=== PATIENT | female | born 1990 | race Caucasian/White ===

== ENCOUNTER 2019-11-15 04:07 | Emergency (ER) | payer OTHER, SELFPAY ==
[2019-11-15 04:07] VITALS: BP 131/76; PULSE 73; RESP 18; TEMP 36.9; O2SAT 100
--- NOTE | 2019-11-15 04:13 | ED.ABDPAIN ---
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 She has had a sonogram for this that showed a blighted ovum. She says her pain is excruciating. She is 2 para 0 with 1 other miscarriage. She is having some vaginal bleeding but it is not severe. MD elicited complaint: abdominal pain Pertinent past history: other ( miscarriage) Onset (ago): day(s) (1) Pain Consistency: constant Location: pelvis Severity: severe Quality: cramping Radiation: none Migration to: no migration Exacerbating factors: nothing Relieving factors: nothing Associated symptoms: denies other symptoms Treatments prior to arrival: NSAIDs (Only took (1) 200mg Ibuprofen.) Related Data Patient : Yes Home Medications Medication Instructions Recorded Confirmed minocycline 100 mg PO DAILY 11/15/19 11/15/19 Allergies Allergy/AdvReac Type Severity Reaction Status Date / Time Penicillins Allergy Unknown Unverified 10/26/13 16:23 Review of Systems Constitutional: Constitutional: Reports no additional constitutional complaints, Denies chills and Denies fever(s) Eyes: Eyes: Reports no additional eye complaints ENT: Reports system reviewed and no additional complaints, except as documented Cardiovascular: Cardiovascular: Reports no additional cardiovascular complaints Respiratory: Respiratory: Reports no additional respiratory complaints Musculoskeletal: Musculoskeletal: Reports no additional musculoskeletal complaints Integumentary/Breasts: Skin/Breast: Reports system reviewed and no additional complaints, except as docu Neurologic: Reports system reviewed and no additional complaints, except as documented Psychiatric: Psychiatric: Reports no additional psychiatric complaints Hematologic/Lymphatic: Hematologic/Lymphatic: Reports no additional hematologic/lymphatic complaints Allergic/Immunologic: Allergic/Immunologic: Reports no additional allergic/immunologic complaints [facility] Surgical History Surgical History (Updated 11/15/19 @ 04:19 by Adonis Knapp MD) H/O dilation and curettage Social History Social History (Updated 11/15/19 @ 04:19 by Adonis Knapp MD) Smoking packs per day: 1 Smoking cigarettes per day: 20.0 Smoking status: Current every day smoker Tobacco type: cigarettes Alcohol intake: current Substance use: current Substance use type: marijuana Exam Const: General: healthy appearing and no acute distress Nutritional Appearance: well nourished Orientation/consciousness: patient oriented x3 Other: Female nurse in room during examination. HENMT: Head: normal to inspection Eyes: Conjunctivae: conjunctivae normal Pupils: Equal, round and reactive pupils present EOM: EOMs intact bilaterally Neck: Neck: normal visual inspection Resp: Effort & Inspection: normal respiratory effort Auscultation: clear to auscultation bilaterally Cardio: Rate: regular rate Rhythm: regular rhythm GI: GI Palp: Yes Soft to palpation, Yes Tenderness to palpation present (GI) (Moderate), Yes Guarding due to palpation present (GI), No Rigid due to palpation and No Rebound tenderness present Auscultation: normal bowel sounds Back/Spine/Pelvis: Back: no CVA tenderness Skin: General skin exam: normal color Rashes: no rashes Neuro: General: patient oriented x3, moves all extremities and no focal motor deficits Speech: normal speech Gait exam (Neuro): Normal gait present Extrem: General: normal to inspection and no pedal edema Psych: Appearance: grossly normal and well kempt Mental Status: mental status grossly normal Affect: Anxious affect present Attitude: cooperative Thought content: Yes Normal thought
[2019-11-15] MEDS: KETOROLAC (*BKC) 60 MG/2 ML VIAL IM (04:20)
[2019-11-15] MEDS: ONDANSETRON HCL ODT 4 MG TABLET PO (04:45)
[2019-11-15] MEDS: HYDROMORPHONE HCL 2 MG/ML VIAL 1 MG IM (04:57)
[2019-11-15 05:28] VITALS: PULSE 84; RESP 20; O2SAT 99
== END 2019-11-15 05:29 | disposition home or self-care (01) ==
PROVIDERS: Emergency Provider Emergency Medicine; PCP Family Medicine
DX: O03.9 Complete or unspecified spontaneous abortion without complication (principal)
CPT/HCPCS: 96372; 99283; 99284; A9270; J1170; J1885

== ENCOUNTER 2020-10-09 16:24 | Outpatient (CLI) | payer OTHER, SELFPAY ==
--- NOTE | ~2020-10-09 | CT_ITS ---
EXAMINATION: CTA chest PE protocol DATE: 10/09/2020 17:25 INDICATION: Chest pain. TECHNIQUE: Computed tomography angiography (CTA) of the chest was performed with 100 mL Omnipaque-350 intravenous contrast timed to evaluate the pulmonary arteries. Coronal maximum intensity projection 3D-reconstructions were created by the technologist. Automated exposure control and iterative reconst ruction technique were employed. The dose-length product was 171.52 mGy-cm. COMPARISON: Chest single view 11/03/2014 FINDINGS: There is mild scarring at the lung apices. No pleural effusion. The heart size is normal. N o pericardial effusion. There is no pulmonary embolus. The bones are unremarkable. IMPRESSION: 1. No pulmonary embolus. Reviewed, dictated and finalized at location A. IMPRESSION: 1. No pulmonary embolus.
[2020-10-09 16:51] LABS: Add Urine Microscopic? YES; Appearance Urine Clear (Clear); Bilirubin Urine Negative (Negative); Blood Urine Negative (Negative); Color Urine Yellow (Yellow); Glucose Urine UA Negative (Negative); Ketones Urine Negative (Negative); Leukocyte Esterase Ur 3+ LEU/UL (Negative); Nitrate Urine Negative (Negative); Protein Urine Negative (Negative); Urobilinogen Urine 0.2 mg/dL (0.2-1.0); pH Urine 5.5 (5.0-8.0)
[2020-10-09 16:56] LABS: Basophils Absolute Auto 0.03 K/mm3 (0.00-0.10); Basophils Percent Auto 0.4 % (0.0-1.0); Eosinophils Absolute Auto 0.03 K/mm3 (0.02-0.50); Eosinophils Percent Auto 0.4 % (1.0-6.0); Hematocrit 41.4 % (35.0-49.0); Hemoglobin 14.6 g/dL (12.0-15.0); Immature Granulocyte Absolute 0.03 K/mm3 (0.00-0.00); Immature Granulocyte Percent A 0.4 % (0.0-0.0); Lymphocytes Percent Auto 18.3 % (18.0-42.0); Mean Corpuscular HGB Conc 35.3 g/dL (32.0-36.0); Mean Corpuscular Hemoglobin 31.4 pg (27.0-31.0); Monocytes Absolute Auto 0.36 K/mm3 (0.10-0.90); Monocytes Percent Auto 4.4 % (2.0-11.0); Neutrophils Absolute Auto 6.2 K/mm3 (1.7-7.2); Neutrophils Percent Auto 76.1 % (50.0-70.0); Platelet Count Result 232 K/mm3 (150-420); Red Blood Count 4.65 M/mm3 (4.20-5.40); Red Cell Distribution Width 11.9 % (11.6-14.4); White Blood Count 8.2 K/mm3 (4.8-10.8)
[2020-10-09 16:58] LABS: RBC Urine 0-2 /hpf (0-2); Squamous Epithelial Cell Urine Moderate /hpf (Few)
[2020-10-09 16:59] LABS: Bacteria Urine 2+ /hpf
[2020-10-09 17:15] LABS: Alanine Aminotransferase 20 U/L (14-59); Albumin Level 4.2 g/dL (3.4-5.0); Alkaline Phosphatase 71 U/L (46-116); Anion Gap 10 mmol/L (8-16); Aspartate Amino Transferase 15 U/L (15-37); Bilirubin,Total 0.6 mg/dL (0.00-1.00); Blood Urea Nitrogen 12 mg/dL (7-18); CRP < 0.5 mg/dL (0.0-0.9); Calcium 8.9 mg/dL (8.5-10.1); Carbon Dioxide 27 mmol/L (21-32); Chloride 101 mmol/L (98-108); Estimated Glomerular Filt Rate > 60; Free T4 Free Thyroxine 0.95 ng/dL (0.76-1.46); Glucose 89 mg/dL (70-99); Osmolality Calculated 284 mOsm/kg (285-295); Potassium 3.7 mmol/L (3.5-5.1); Sodium 138 mmol/L (136-145); Thyroid Stimulating Hormone 2.23 uIU/mL (0.36-3.74); Total Protein 7.5 g/dL (6.4-8.2)
[2020-10-09 17:41] LABS: SARS-CoV-2 RNA PCR Negative (Negative)
== END 2020-10-09 16:25 | disposition home or self-care (01) ==
LOC: CHSLAB 16:28
PROVIDERS: PCP Family Medicine; Visit Provider Nurse Practitioner Family
DX: R07.9 Chest pain, unspecified (principal); J06.9 Acute upper respiratory infection, unspecified; R53.83 Other fatigue; Z20.822 Contact with and (suspected) exposure to COVID-19
CPT/HCPCS: 36415; 71275; 80053; 81001; 84439; 84443; 85025; 86140; 87086; C9803; Q9967; U0003; U0005

== ENCOUNTER 2021-06-20 11:44 | Outpatient (CLI) | payer OTHER, SELFPAY ==
[2021-06-20 13:47] LABS: SARS-CoV-2 Ag Negative (Negative)
== END 2021-06-20 11:45 | disposition home or self-care (01) ==
LOC: CHSLAB 11:46
PROVIDERS: PCP Family Medicine; Visit Provider Family Medicine
DX: Z20.822 Contact with and (suspected) exposure to COVID-19 (principal)
CPT/HCPCS: 87426; C9803

== ENCOUNTER 2022-12-02 10:49 | Outpatient (CLI) | payer OTHER, SELFPAY ==
--- NOTE | ~2022-12-02 | XR_ITS ---
Cervical Spine: AP, lateral, open-mouth views Clinical History: Pain Findings: The normal lordotic curve is maintained. The vertebral bodies and posterior elements appea r intact. There is mild degenerative disc change at C5-C6. Pre-vertebral soft tissues are unremarkabl e. Impression: Mild degenerative disc narrowing at C5-C6. Reviewed, dictated and finalized at [facility]. Impression: Mild degenerative disc narrowing at C5-C6.
== END 2022-12-02 10:50 | disposition home or self-care (01) ==
LOC: CHSIMG 10:50
PROVIDERS: PCP Family Medicine; Visit Provider Nurse Practitioner Family
DX: M54.2 Cervicalgia (principal)
CPT/HCPCS: 72040

== ENCOUNTER 2022-12-20 09:30 | Outpatient (CLI) | payer OTHER, SELFPAY ==
--- NOTE | ~2022-12-20 | MR_ITS ---
EXAMINATION: MR cervical spine wo con DATE: 12/20/2022 10:20 INDICATION: Neck injury and stiffness. Mild degenerative disc narrowing. TECHNIQUE: Magnetic resonance imaging (MRI) of the cervical spine was performed without intravenous c ontrast. COMPARISON: Cervical spine radiographs 12/02/2022 FINDINGS: There is mild kyphosis of cervical spine. Vertebral body heights are normal. There is moder ately decreased disc height at C5-C6. There is increased T2-weighted signal intensity of the interspi nous ligament at C6-C7, consistent with sprain. The spinal cord signal intensity is normal. The follo wing disc levels are specifically discussed: C2-C3: The disc does not extend beyond the endplate margin. There is no uncovertebral joint osteoarth ritis. There is mild bilateral facet joint osteoarthritis. There is no neural foraminal stenosis. The re is no central canal stenosis. C3-C4: The disc does not extend beyond the endplate margin. There is no uncovertebral joint osteoarth ritis. There is moderate bilateral facet joint osteoarthritis. There is no neural foraminal stenosis. There is no central canal stenosis. C4-C5: The disc does not extend beyond the endplate margin. There is no uncovertebral joint osteoarth ritis. There is mild bilateral facet joint osteoarthritis. There is no neural foraminal stenosis. The re is no central canal stenosis. C5-C6: The disc is bulging. There is mild bilateral uncovertebral joint osteoarthritis. There is mild left facet joint osteoarthritis. There is mild left neural foraminal stenosis. There is mild central canal stenosis. C6-C7: The disc does not extend beyond the endplate margin. There is no uncovertebral joint osteoarth ritis. There is mild right and moderate left facet joint osteoarthritis. There is no neural foraminal stenosis. There is no central canal stenosis. C7-T1: The disc does not extend beyond the endplate margin. There is no uncovertebral joint osteoarth ritis. There is moderate right and severe left facet joint osteoarthritis. There is mild bilateral ne ural foraminal stenosis. There is no central canal stenosis. IMPRESSION: 1. Mild cervical spondylosis. 2. Mild interspinous ligament sprain at C6-C7. Reviewed, dictated and finalized at location E.
== END 2022-12-20 09:31 | disposition home or self-care (01) ==
LOC: CHSIMG 09:31
PROVIDERS: PCP Family Medicine; Visit Provider Nurse Practitioner Family
DX: M50.30 Other cervical disc degeneration, unspecified cervical region (principal); M43.02 Spondylolysis, cervical region; S13.8XXA Sprain of joints and ligaments of other parts of neck, initial encounter
CPT/HCPCS: 72141

== ENCOUNTER 2023-01-28 14:46 | Emergency (ER) | payer OTHER, SELFPAY ==
[2023-01-28 14:48] VITALS: BP 94/63; PULSE 120; RESP 20; TEMP 36.6; O2SAT 100
--- NOTE | 2023-01-28 15:00 | ED.SKABFB ---
HPI - Skin/Abscess/Foreign Bdy General Chief complaint: Unspecified Stated complaint: sat on cactus Time Seen by Provider: 01/28/23 15:00 Source: patient Mode of arrival: ambulatory Limitations: no limitations History of Present Illness HPI narrative: 32-year-old female with no significant past medical history presents to the ER after she fell on a cactus miller with -- multiple thorns embedded over on left buttock and posterior thigh. She complains of severe burning pain. no other injuries noted. MD complaint: other ( Sounds over left thigh and buttock) Onset (ago): hour(s) ( 1 hour ago) Tetanus up to date: yes Related Data Home Medications Medication Instructions Recorded Confirmed divalproex 500 mg tablet,extended 500 mg PO DAILY 01/28/23 01/28/23 release 24 hr fluoxetine 60 mg tablet 60 mg PO DAILY 01/28/23 01/28/23 spironolactone 50 mg tablet 50 mg PO DAILY 01/28/23 01/28/23 Allergies Allergy/AdvReac Type Severity Reaction Status Date / Time Penicillins Allergy Unknown Unknown Unverified 01/28/23 15:13 Review of Systems Review of Systems: All systems reviewed & are unremarkable except as noted in HPI and below Constitutional: Constitutional: Reports as per HPI and Reports no additional constitutional complaints Eyes: Eyes: Reports as per HPI and Reports no additional eye complaints ENT: Reports system reviewed and no additional complaints, except as documented and Reports as per HPI Cardiovascular: Cardiovascular: Reports as per HPI and Reports no additional cardiovascular complaints Respiratory: Respiratory: Reports as per HPI and Reports no additional respiratory complaints Gastrointestinal: Gastrointestinal: Reports as per HPI and Reports no additional gastrointestinal complaints Genitourinary: Genitourinary: Reports no additional female genitourinary complaints Musculoskeletal: Musculoskeletal: Reports no additional musculoskeletal complaints and Reports as per HPI Integumentary/Breasts: Comments: multiple thorns over left buttock and left posterior thigh Neurologic: Reports system reviewed and no additional complaints, except as documented and Reports as per HPI Psychiatric: Psychiatric: Reports no additional psychiatric complaints and Reports as per HPI Endocrine: Endocrine: Reports no additional endocrine complaints and Reports as per HPI Hematologic/Lymphatic: Hematologic/Lymphatic: Reports no additional hematologic/lymphatic complaints and Reports as per HPI Allergic/Immunologic: Allergic/Immunologic: Reports no additional allergic/immunologic complaints and Reports as per HPI [facility] Surgical History Surgical History (Updated 11/15/19 @ 04:19 by Adonis Knapp MD) H/O dilation and curettage Social History Social History (Updated 11/15/19 @ 04:19 by Adonis Knapp MD) Smoking packs per day: 1 Smoking cigarettes per day: 20.0 Smoking status: Current every day smoker Tobacco type: cigarettes Alcohol intake: current Substance use: current Substance use type: marijuana Exam Const: General: healthy appearing Nutritional Appearance: well nourished Orientation/consciousness: patient oriented x3 Limitations: no limitations and altered mental status HENMT: Head: normal to inspection Ears: external ears normal Face/Nose/Sinus: Normal external nose present Face and sinus: normal facial exam Mouth: Yes Normal oral and palatal mucosa present Throat: posterior oropharynx normal Eyes: Conjunctivae: conjunctivae normal Pupils: Equal, round and reactive pupils present EOM: EOMs intact bilaterally Direct Ophthalmoscopy: no photophobia Neck: Neck: normal visual inspection and no lymphadenopathy Chest: Chest palpation & inspection: normal inspection of the chest Resp: Effort & Inspection: normal respiratory effort Auscultation: clear to auscultation bilaterally Cardio: Rate: regular rate Rhythm: regular rhythm Heart sounds: Murmur heart sound present G
[2023-01-28] MEDS: TETANUS,DIPHTHERIA,AC PERTUSSIS ADULT 0.5 ML (ADACEL) IM (15:58)
[2023-01-28] MEDS: KETOROLAC 30 MG/ML VIAL (*BKC) IM (15:58)
[2023-01-28 16:28] VITALS: BP 112/70; PULSE 90; RESP 20; TEMP 36.7; O2SAT 100
== END 2023-01-28 16:34 | disposition home or self-care (01) ==
PROVIDERS: Emergency Provider Internal Medicine Critical Care Medicine; PCP Family Medicine
DX: S31.824A Puncture wound with foreign body of left buttock, initial encounter (principal); S71.142A Puncture wound with foreign body, left thigh, initial encounter; Z23 Encounter for immunization; F17.210 Nicotine dependence, cigarettes, uncomplicated; W19.XXXA Unspecified fall, initial encounter
CPT/HCPCS: 90471; 90715; 96372; 99283; J1885

== ENCOUNTER 2023-04-25 12:21 | Emergency (ER) | payer OTHER, SELFPAY ==
--- NOTE | ~2023-04-25 | CT_ITS ---
EXAMINATION: CT abdomen pelvis wo con DATE: 04/25/2023 15:37 INDICATION: right kidney pain, lower back pain TECHNIQUE: Computed tomography (CT) of the abdomen and pelvis was performed without intravenous contr ast. Automated exposure control and iterative reconstruction technique were employed. The dose-length product was 651.91 mGy-cm. COMPARISON: None. FINDINGS: Lower thorax: Unremarkable Liver: Normal. Biliary/Gallbladder: Cholelithiasis. No bile duct dilation. Pancreas: No mass or duct dilation. Spleen: Normal. Adrenals:No mass. Kidneys: No suspicious mass, obstructing stone, or hydronephrosis. GI tract: No small or large bowel dilation. Normal appendix. Mesentery/Peritoneum: No ascites, mass, or free air. Retroperitoneum: No mass. Pelvis: Pelvic organs are within normal limits. Soft Tissues: Soft tissues and body wall unremarkable. Bones: No acute osseous finding. IMPRESSION: No acute abdominopelvic process detected. Reviewed, dictated and finalized at location [facility]. [facility]
[2023-04-25 12:28] VITALS: BP 121/67; PULSE 92; RESP 18; TEMP 36.4; O2SAT 100
[2023-04-25 14:18] LABS: Appearance Urine Clear (Clear); Bacteria Urine None Seen /hpf; Bilirubin Urine Negative (Negative); Blood Urine Negative (Negative); Color Urine Yellow (Yellow); Glucose Urine UA Negative (Negative); Ketones Urine Negative (Negative); Leukocyte Esterase Ur 1+ LEU/UL (Negative); Need Manual Microscopic Reviewed; Nitrate Urine Negative (Negative); Non Pathogenic Casts 0-2; Protein Urine Negative (Negative); RBC Urine 0-2 /hpf (0-2); Specific Grav Ur 1.008 (1.001-1.035); Squamous Epithelial Cell Urine Occasional /hpf (Few); Urobilinogen Urine 0.2 mg/dL (<2.0); WBC Urine 0-5 /hpf; pH Urine 7.5 (5.0-9.0)
[2023-04-25 14:19] LABS: Add Urine Microscopic? YES
--- NOTE | 2023-04-25 15:27 | ED.BACK ---
HPI - Back Pain/Injury General Chief Complaint: Back Pain/Injury Stated Complaint: Lower Back Pain, 2 days Time Seen by Provider: 04/25/23 15:01 Source: patient Mode of arrival: ambulatory Limitations: no limitations History of Present Illness HPI Narrative: 32 years old white female drove herself to the emergency room complaining of lower back pain for the last 2 days, like spasm, worse with any movement, bending and walking, better if she remaining still. Today noticed that the pain radiating to right flank area. History of lupus, stroke currently on Xarelto. Patient reported history of recurrent urinary tract infection. Patient did take Tylenol without any improvement. She denies any fever, chills, nausea, vomiting, diarrhea, constipation or urinary symptoms. Patient denies radiation of pain to lower extremities Related Data Home Medications Medication Instructions Recorded Confirmed divalproex 500 mg tablet,extended 500 mg PO DAILY 01/28/23 01/28/23 release 24 hr fluoxetine 60 mg tablet 60 mg PO DAILY 01/28/23 01/28/23 spironolactone 50 mg tablet 50 mg PO DAILY 01/28/23 01/28/23 Allergies Allergy/AdvReac Type Severity Reaction Status Date / Time No Known Allergies Allergy Verified 04/25/23 14:54 Review of Systems Review of Systems: All systems reviewed & are unremarkable except as noted in HPI and below PMFSH Surgical History Surgical History H/O dilation and curettage Social History Social History Smoking packs per day: 1 Smoking cigarettes per day: 20.0 Smoking status: Current every day smoker Tobacco type: cigarettes Alcohol intake: current Substance use: current Substance use type: marijuana Exam Narrative: General appearance: Well-developed, well-nourished Skin: Normal color Head: Normocephalic, nontraumatic Eyes: Clear conjunctiva ENT: Oropharynx normal, ears normal, nose normal Neck: Supple, nontender Chest and respiratory: Airway patent, no respiratory distress, no accessory muscle use Heart: Regular rate/rhythm Abdomen: Soft, nontender, no organomegaly, quiet bowel sounds Vascular: Normal peripheral pulses, normal capillary refill. Musculoskeletal: Diffuse tenderness across the lumbar area, and right flank. No bruises, no swelling, no rash Neurologic: Alert and oriented ?3, LIMB DRIVER is normal as tested, no gross motor deficit Course Reevaluation(s) Reevaluation #1: [id number] improvement after receiving ibuprofen and [place] in the ED Date: 04/25/23 Time: 16:10 Vital Signs Vital signs: Vital Signs Temperature 36.4 C 04/25/23 12:28 Pulse Rate 92 04/25/23 12:28 Respiratory Rate 18 04/25/23 12:28 Blood Pressure 121/67 04/25/23 12:28 Pulse Oximetry 100 04/25/23 12:28 Oxygen Delivery Room Air 04/25/23 12:28 Temperature 36.4 C 04/25/23 12:28 Pulse Rate 92 04/25/23 12:28 Respiratory Rate 18 04/25/23 12:28 Blood Pressure 121/67 04/25/23 12:28 Pulse Oximetry 100 04/25/23 12:28 Oxygen Delivery Room Air 04/25/23 12:28 MDM - Back Pain/Injury MDM Narrative Medical decision making narrative: history of chronic lower back pain, with numerous physical therapy.flare up again 2-3 days ago, denies any recent trauma. 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 No radiation to lower extremities. Patient is concerned about urinary tract infection or kidney stone. She denies any fever, chills, nausea vomiting, diarrhea, constipation. Physical examination as above, vital signs stable on arrival to the ED, workup today included urinalysis
[2023-04-25] MEDS: IBUPROFEN 600 MG TABLET PO (15:42)
[2023-04-25] MEDS: HYDROcodone/acetaminophen (*CRX) 5-325 MG TABLET 1 TAB PO (15:42)
== END 2023-04-25 16:18 | disposition home or self-care (01) ==
PROVIDERS: Emergency Medicine; Emergency Provider Emergency Medicine; PCP Family Medicine
DX: S39.012A Strain of muscle, fascia and tendon of lower back, initial encounter (principal); F17.210 Nicotine dependence, cigarettes, uncomplicated; Z86.73 Personal history of transient ischemic attack (TIA), and cerebral infarction without residual deficits; Z79.01 Long term (current) use of anticoagulants; X58.XXXA Exposure to other specified factors, initial encounter
CPT/HCPCS: 74176; 81001; 81025; 99284; A9270

== ENCOUNTER 2023-08-12 17:10 | Emergency (ER) | payer OTHER, SELFPAY ==
--- NOTE | 2023-08-12 17:13 | ED.BACK ---
HPI - Back Pain/Injury General Chief Complaint: Back Pain/Injury Stated Complaint: back pain Time Seen by Provider: 08/12/23 17:13 Focused HPI: This is a 32 year old female that presents to the ER for flank pain. Associated with radiation to the abdomen. Denies fever, dysuria or hematuria. GENERAL: Well-appearing, well-nourished, and in no acute distress. HEAD: Normocephalic, atraumatic. CHEST: No respiratory distress. HEART: Regular rate NEURO: ?Alert and oriented x3. Patient screened in triage and initial orders placed.? ?Additional care and disposition to be based upon?diagnostic testing and treatment. Related Data Home Medications Medication Instructions Recorded Confirmed divalproex 500 mg tablet,extended 500 mg PO DAILY 01/28/23 01/28/23 release 24 hr fluoxetine 60 mg tablet 60 mg PO DAILY 01/28/23 01/28/23 spironolactone 50 mg tablet 50 mg PO DAILY 01/28/23 01/28/23 Allergies Allergy/AdvReac Type Severity Reaction Status Date / Time No Known Allergies Allergy Verified 04/25/23 14:54 Review of Systems Review of Systems: CONSTITUTIONAL: Denies fever GASTROINTESTINAL: Reports abdominal pain. Denies nausea, vomiting GENITOURINARY: Denies dysuria All systems reviewed & are unremarkable except as noted in HPI and below PMFSH Surgical History Surgical History H/O dilation and curettage Social History Social History Smoking packs per day: 1 Smoking cigarettes per day: 20.0 Smoking status: Current every day smoker Tobacco type: cigarettes Alcohol intake: current Substance use: current Substance use type: marijuana Exam Narrative: GENERAL: Well-appearing, well-nourished, and in no acute distress. HEAD: Normocephalic, atraumatic. EYES: EOMI. CHEST: No respiratory distress. HEART: Regular rate EXTREMITIES: Normal range of motion. No edema. SKIN: Warm, dry, no rash. NEURO: No focal deficits. Alert and oriented x3. PSYCH: Normal mood and affect Course Course Emergency Course: MSE was performed in triage. Patient then eloped before any further evaluation or management Vital Signs Vital signs: Vital Signs Temperature 97.8 F 08/12/23 17:25 Pulse Rate 86 08/12/23 17:25 Respiratory Rate 18 08/12/23 17:25 Blood Pressure 100/70 08/12/23 17:25 Pulse Oximetry 100 08/12/23 17:25 Temperature 97.8 F 08/12/23 17:25 Pulse Rate 86 08/12/23 17:25 Respiratory Rate 18 08/12/23 17:25 Blood Pressure 100/70 08/12/23 17:25 Pulse Oximetry 100 08/12/23 17:25 MDM - Back Pain/Injury Differential Diagnosis Differential diagnosis: Likely strain of lumbar region and renal colic Critical Care Time Critical Care Time Critical Care Time: No Discharge Plan Discharge Clinical Impression: Acute flank pain Patient Disposition: Elopement After Seen by Prov Condition: Guarded Prognosis Prescriptions: No Action divalproex 500 mg tablet extended release 24 hr 500 mg PO DAILY spironolactone 50 mg tablet 50 mg PO DAILY fluoxetine 60 mg tablet 60 mg PO DAILY sulfamethoxazole-trimethoprim [Bactrim DS] 800-160 mg tablet 1 tablet PO Q12H Qty: 14 0RF naproxen [Naprosyn] 500 mg tablet 500 mg PO BID PRN (Reason: pain) Qty: 14 0RF cyclobenzaprine 10 mg tablet 10 mg PO TID PRN (Reason: muscle spasm) Qty: 20 0RF Follow-up/Referrals: Tera Baeza MD [Primary Care Provider] -
[2023-08-12 17:25] VITALS: BP 100/70; PULSE 86; RESP 18; TEMP 36.6; O2SAT 100
--- NOTE | 2023-08-12 18:57 | PC.NURSE ---
pt called multiple times, not in lobby
== END 2023-08-12 18:58 | disposition left against medical advice (07) ==
PROVIDERS: Emergency Provider Physician Assistant; PCP Family Medicine
DX: R10.9 Unspecified abdominal pain (principal); F17.210 Nicotine dependence, cigarettes, uncomplicated
CPT/HCPCS: 99281

== ENCOUNTER 2024-03-23 12:03 | Outpatient (CLI) | payer OTHER, SELFPAY ==
[2024-03-23 12:27] LABS: Basophils Absolute Auto 0.03 K/mm3 (0.00-0.10); Basophils Percent Auto 0.5 % (0.0-1.0); Eosinophils Absolute Auto 0.17 K/mm3 (0.02-0.50); Eosinophils Percent Auto 2.7 % (1.0-6.0); Hemoglobin 13.7 g/dL (12.0-15.0); Immature Granulocyte Absolute 0.02 K/mm3 (0.00-0.00); Immature Granulocyte Percent A 0.3 % (0.0-0.0); Lymphocytes Percent Auto 20.5 % (18.0-42.0); Mean Corpuscular HGB Conc 35.1 g/dL (32-36); Mean Corpuscular Hemoglobin 30.9 pg (27.0-31.0); Monocytes Absolute Auto 0.31 K/mm3 (0.10-0.90); Monocytes Percent Auto 4.9 % (2.0-11.0); Neutrophils Absolute Auto 4.51 K/mm3 (1.70-7.20); Neutrophils Percent Auto 71.1 % (50.0-70.0); Platelet Count Result 212 K/mm3 (150-420); Red Blood Count 4.43 M/mm3 (4.20-5.40); Red Cell Distribution Width 11.9 % (11.6-14.4); White Blood Count 6.3 K/mm3 (4.8-10.8)
[2024-03-23 12:44] LABS: INR 0.9; Partial Thromboplastin Time 44.8 Sec (23.9-30.70); Prothrombin Time 10.3 Seconds (9.50-12.1)
[2024-03-23 15:27] LABS: Alanine Aminotransferase 20 U/L (14-59); Albumin Level 3.7 g/dL (3.4-5.0); Alkaline Phosphatase 73 U/L (46-116); Anion Gap 12 mmol/L (4-12); Aspartate Amino Transferase 14 U/L (15-37); Bilirubin,Total 0.4 mg/dL (0.00-1.00); Blood Urea Nitrogen 6 mg/dL (7-18); Calcium 8.8 mg/dL (8.5-10.1); Carbon Dioxide 23 mmol/L (21-32); Chloride 104 mmol/L (98-108); Estimated Glomerular Filt Rate > 60; Folic Acid 4.4 ng/mL (8.6->20); Glucose 103 mg/dL (70-99); Iron 67 ug/dL (50-170); Osmolality Calculated 285 mOsm/kg (285-295); Percent Iron Saturation 21 % (12-57); Potassium 4.4 mmol/L (3.5-5.1); Sodium 139 mmol/L (136-145); Total Protein 6.9 g/dL (6.4-8.2); Vitamin B12 562 pg/mL (193-986)
[2024-03-25 05:39] LABS: Vitamin D 25 Hydroxy 26 ng/mL (30-100)
[2024-03-26 01:17] LABS: Hexagonal Phase Confirm POSITIVE (NEGATIVE); Lupus dRVVT Confirmation POSITIVE (NEGATIVE); Lupus dRVVT Screen 81 sec (< OR = 45); PTT-LA Screen 71 sec (< OR = 40); Thrombin Clotting Time 16 sec (13-19)
[2024-03-26 03:09] LABS: Anti Cardio Antibody IgM <2.0 MPL-U/mL; Anti Cardiolipin Antibody IgA >65.0 APL-U/mL; Anti Cardiolipin Antibody IgG >112.0 GPL-U/mL
== END 2024-03-23 12:04 | disposition home or self-care (01) ==
PROVIDERS: PCP Family Medicine; Visit Provider Internal Medicine Hematology
DX: D68.61 Antiphospholipid syndrome (principal)
CPT/HCPCS: 36415; 80053; 82306; 82607; 82746; 83540; 83550; 85025; 85597; 85598; 85610; 85613; 85670; 85730; 86147

== ENCOUNTER 2024-04-19 16:01 | Outpatient (RCR) | payer OTHER, SELFPAY ==
--- NOTE | 2024-04-19 17:09 | PTOPEVAL1 ---
Assessment and note entered by Louise Aguilera DPT Evaluation Information Assessment Status Evaluation Diagnosis low back pain ICD-10 Condition Codes (PT) Pain in low back M54.50 Onset 04/15/24 Subjective Information Patient reports about a week ago she starting having an increase in low back pain. pain is continuing to increase and today is going down the L LE. she reports pain is worse with standing up out of the chair, rolling in bed, picking up her son, and waking. She reports that in the past she has also had low back pain flare ups that go away with muscle relaxer. 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 Donaldson is 33 year old female who presents to PT with low back pain. She demonstrates decreased lumbar ROM, decreased LE strength and decrease B LE flexibility impairing her ability to lift her son, roll in bed and stand up from a chair. She would benefit from skilled PT to address impairments and return to PLOF. Plan of Care Interventions Electrical Stimulation,Gait Training,Hot Pack/Cold Pack,Manual Therapy,Mechanical Traction,Neuro Re- education,Patient/Caregiver Educati,Therapeutic Activities,Therapeutic Exercise PT Services Indicated Yes Treatment Frequency and 2x weekly for 8 visits Duration These treatments will address the objective and functional deficits as defined above. The patient will be advanced safely and appropriately in order for the patient to progress towards his/her prior level of function. Additional exercises will be introduced and as well as a comprehensive home exercise program upon discharge, if needed, ?to ensure carryover of functional gains achieved in the clinic. This treatment plan has been reviewed and agreement upon by the patient.
== END 2024-07-18 23:59 | disposition home or self-care (01) ==
LOC: CHSPT 16:01
PROVIDERS: PCP Family Medicine; Visit Provider Family Medicine
DX: M54.50 Low back pain, unspecified (principal)
CPT/HCPCS: 97014; 97110; 97140; 97161; G0283

== ENCOUNTER 2024-12-21 01:03 | Emergency (ER) | payer OTHER, SELFPAY ==
[2024-12-21 01:03] VITALS: BP 121/78; PULSE 80; RESP 20; TEMP 36.6; O2SAT 99
--- NOTE | 2024-12-21 01:04 | ECG_ITS ---
Test Date: 2024-12-21 01:10:05 Measurements Intervals [place] Rate: 79 P: 66 KS: 143 QRS: 66 QRSD: 82 T: 61 QT: 409 QTc: 469 Interpretive Statements SINUS RHYTHM WITH SINUS ARRHYTHMIA No previous ECG available for comparison Electronically Signed On 12-21-2024 12:45:48 CDT by Dustin Swain M.D.
--- OUTSIDE RECORDS SUMMARY | 2024-12-21 01:06 | XMS_ITS | Clinical Summary ---
Author Organization [facility] Address [address] [place] [address] Care Team Providers Care Improvement Advisor Name Role Phone Yonas Kaur MD Primary Care Provider [phone] Allergies No known active allergies Medications fluoxetine 20 MG capsule Take 20 mg by mouth daily. Anxiety/depr ession 11 9 Active aspirin EC 81 MG tablet Take 81 mg by mouth daily. Active enoxaparin 80 MG/0.8ML Solution Inject 80 mg into the skin 2 (two) times a day. Active famotidine 40 MG tablet Take 40 mg by mouth 2 (two) times daily as needed for Heartburn. Active vitamin D3, cholecalciferol, 75 MCG (3000 UT) Tab tablet Take 3,000 Units by mouth daily. Active HYDROcodone-acetami nophen (NORCO) 5-325 MG tabletIndications:A cute Pain < 7 Day Supply Take 1-2 tablets by mouth every 6 (six) hours as needed. Indications: Acute Pain < 7 Day Supply 20 tablet 4 Active ondansetron (ZOFRAN-ODT) 4 MG disintegrating tabletIndications:L eft buttock abscess Take 1 tablet (4 mg total) by mouth every 6 (six) hours as needed for Nausea. 10 tablet 4 Active Active Problems Problem Noted Date Diagnosed Date Term of infant ([facility]) 08/29/2021 Resolved Problems Problem Noted Date Diagnosed Date Resolved Date Non-Hodgkin's lymphoma ([facility]) 08/14/2019 08/15/2019 Family History Relation Status Comments Father Alive Mother Alive Social History Tobacco Use Types Packs/Day Years Used Date Smoking Tobacco: Every Day Cigarettes 0.3 10 Smokeless Tobacco: Never Tobacco Cessation:Ready to Q uit: Not Asked; Counseling Given: Not Answered Alcohol Use Standard Drinks/Week Comments No 0 (1 standard drink = 0.6 oz pur e alcohol) Humiliation, Afraid, Rape, and Kick questionnair e Answer Date Recorded Within the last year, have y ou been afraid of your partner or ex-partner? No 08/29/2021 Within the last year, have y ou been humiliated or emotionally abused in other ways by your partner or ex-partner? No Within the last year, have y ou been kicked, hit, slapped, or otherwise physically hurt by your partner or ex-partner? No 08/29/2021 Within the last year, have y ou been raped or forced to have any kind of sexual activity by your partner or ex-partner? No 08/29/2021 Social Connection and Isolation Panel [NHANES] A nswer Date Recorded In a typical week, how many times do you talk on the phone with family, friends, or neighbors? Once a week 08/30/19 How often do you get togethe r with friends or relatives? Once a week 08/29/2021 How often do you attend chur or evangelical services? Never 08/29/2021 Do you belong to any clubs o r organizations such as tenriism groups, unions, fraternal or athletic groups, or school groups? No 08/29/2021 How often do you attend meet ings of the clubs or organizations you belong to? Never 08/29/2021 Are you , , di vorced, , never , or living with a partner? Living with partner 08/29/2021 AUDIT-C Answer Date Recorded Q1: How often do you have a drink containing alc ohol? Never 08/29/2021 Q2: How many drinks containi ng alcohol do you have on a typical day when you are drinking? Patient declined 08/29/2021 Q3: How often do you have si x or more drinks on one occasion? Never 08/29/2021 Overall Financial Resource Strain (CARDIA) Answe r Date Recorded How hard is it for you to pa y for the very basics like food, housing, medical care, and heating? Not hard at all 08/29/2021 [facility]at [facility] - Occupational Stress Questionnaire Answer Date Recorded Do you feel stress - tense, restless, nervous, or anxious, or unable to sleep at night because your mind is troubled all the time - these days? Not at all 08/29/2021 Exercise Vital Sign Answer Date Recorde d On average, how many days pe r week do you engage in moderate to strenuous exercise (like a brisk walk)? 2 days 08/29/2021 On average, how many minutes do you engage in exercise at this level? 20 min 08/29/2021 Hunger Vital Sign Answer Date Recorded Within the past 12 months, y ou worried that your food would run out before you got the money to buy more. Never true 08/30/19 22 Within the past 12 months, t he food you bought just didn't last and you didn't have money to get more. Never true 08/29/2021 PRAPARE - Transportation Answer Date Re corded In the past 12 months, has l ack of transportation kept you from medical appointments or from getting medications? No 08/07 In the past 12 months, has l ack of transportation kept you from meetings, work, or from getting things needed for daily living? No 08/29/2021 Housing Stability Vital Sign Answer Toni e Recorded In the last 12 months, was t here a time when you were not able to pay the mortgage or rent on time? No 08/29/2021 In the last 12 months, how many places have you lived? 1 08/29/2021 In the last 12 months, was t here a time when you did not have a steady place to sleep or slept in a senior care (including now)? 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 Gender Identity Female 08/29/2021 2:54 PM CDT Sexual Orientation Straight 08/29/2021 2: 54 PM CDT Last Filed Vital Signs Vital Sign Reading Time Taken Comments Blood Pressure 125/76 09/06/2023 11:28 AM CDT Pulse 98 09/06/2023 11:28 AM CDT Temperature 36.6 C (97.8 F) 09/06/2023 11:29 AM CDT Respiratory Rate 16 09/06/2023 11:28 AM CDT Oxygen Saturation 100% 09/06/2023 11:28 AM CDT Inhaled Oxygen Concentration - - Weight 75 kg (165 lb 5.5 oz) 09/06/2023 11:28 AM CDT Height 160 cm (5' 3) 09/06/2023 11:28 AM CDT Body Mass Index 29.29 09/06/2023 11:28 AM CDT Plan of Treatment Health Maintenance Due Date Last Done Comments Cervical Cancer Screening Pap Smear (Age 30 to 64) Every 3 Years 1989 Annual Physical 1992 Hepatitis C 08/23/2007 DTaP, Tdap and Td Vaccines (1 - Tdap) 2008 03/23/1995, 04/12/1993, 01/13/1990, Additional history exists Hepatitis B Vaccines (1 of 3 - 19+ 3-dose series) 2008 Pneumococcal Vaccine: Pediatrics (0 to 5 Years) and At-Risk Patients (6 to 49 Years) (1 of 2 - PCV) 2008 Cervical Cancer Screening Pap with HPV Testing (Age 30 to 64) Every 5 Years 08/23/2019 Cervical Cancer Screening with HPV 08/23/2019 COVID-19 Vaccine ( season) 2024 HPV Vaccines Aged Out No longer eligi ble based on patient's age to complete this topic Meningococcal B Vaccine Aged Out No l onger eligible based on patient's age to complete this topic Meningococcal Vaccine Aged Out No wiliam alfredo eligible based on patient's age to complete this topic RSV Immunizations Under 20 Months Aged Out No longer eligible based on patient's age to complete this topic Additional Health Concerns Infection Onset Date Last Indicated MRSA 09/04/2023 09/04/2023 Insurance [employer] Advance Directives * Full Code (Latest Code Status on File) Date Activated Date Inactivated Comments 08/29/2021 2:44 PM 08/31/2021 12:32 PM * Full Code Date Activated Date Inactivated Comments 04/28/2019 1:25 PM 04/28/2019 5:05 PM Care Teams Improvement Advisor Relationship Specialty Start Date End Date Yonas Kaur MD [address] [place] [address] PCP - General FAMILY PRACTICE 01/26/19
--- OUTSIDE RECORDS SUMMARY | 2024-12-21 01:06 | XMS_ITS | Referral Summary ---
Author Organization [facility] Address [address] [place] [address] Care Team Providers Care Mapping Pilot Name Role Phone Tera Baeza MD Primary Care Provide r Allergies No known active allergies Medications FLUoxetine (PROzac) 40 mg capsule Take by mouth daily 03/04/2021 Active spironolactone (ALDACTONE) 25 mg tablet 10/16/2022 Active hydrOXYzine (VISTARIL) 50 mg capsule TAKE 1 TO 2 CAPSULES BY MOUTH 3 TIMES A DAY NEEDED 10/07/2022 Active methocarbamoL (ROBAXIN) 500 mg tablet Take 1 tablet (500 mg total) by mouth 2 (two) times a day 20 tablet 11/13/2022 Active Active Problems Problem Noted Date Diagnosed Date Migraine 01/21/2024 Depression 01/21/2024 Anxiety 01/21/2024 Stroke (cerebrum) 01/21/2024 HTN (hypertension) 01/21/2024 HLD (hyperlipidemia) 01/21/2024 Social History Tobacco Use Types Packs/Day Years Used Date Smoking Tobacco: Every Day Cigarettes Smokeless Tobacco: Never Tobacco Cessation:Ready to Q uit: Not Asked; Counseling Given: Not Answered AUDIT-C Answer Date Recorded Frequency of Alcohol Consumption Not on file 01/19/2024 Q2: How many drinks containi ng alcohol do you have on a typical day when you are drinking? 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 Does NOT exclude the possibility of recent exposure to HCV. Blood 03/19/2021 5:34 AM CDT 03/19/2021 5:47 AM CDT Madhu Ventura MD LAB MICRO BIOLOGY - GENERAL ORDERABLES Edited Result - Final [facility] Department of Laboratories [place], [place] [id number] from Last 3 Months or Most Recently Relevant to Health Maintenance Insurance AETNA [facility] AETNA [facility] AETNA [facility] Advance Directives For more information, please contact: [phone] * Full Code (Latest Code Status on File) Date Activated Date Inactivated Comments 03/18/2021 7:54 PM 03/21/2021 6:40 PM Care Teams Mapping Pilot Relationship Specialty Start Date End Date Tera Baeza MD [address] [place] [address] PCP - General Family Medicine 04/13/24
--- OUTSIDE RECORDS SUMMARY | 2024-12-21 01:06 | XMS_ITS | Clinical Summary ---
Author Organization [facility] Address [address] [place] [address] Care Team Providers Care Qa Tester Name Role Phone Tera Baeza MD Primary [...] 01/21/2024 HTN (hypertension) 01/21/2024 HLD (hyperlipidemia) 01/21/2024 Surgical History Surgery Date Site/Laterality Comments DENTAL SURGERY Medical History Medical History Date Comments Non-Hodgkin lymphoma (HCC) Stroke (HCC) Mental disorder Lupus Depression 01/21/2024 HTN (hypertension) 01/21/2024 Family History Medical History Relation Name Comments No Known Problems Father No Known Problems Mother Relation Name Status Comments Father Mother Social History Tobacco Use Types Packs/Day Years [...] on file Sexual Orientation Not on file Obstetrics History Para Term AB IAB SAB Ectopic Multiple Livin g Live Births 3 2 1 1 0 Date Outcome GA Total Labor Labor/2nd/3rd Weight Sex Type Anes PTL Angie A1 A5 Name Clin IAB SAB Last Filed Vital Signs Vital Sign Reading Time Taken Comments Blood Pressure 92/55 01/19/2024 3:15 PM CDT Pulse 109 01/19/2024 3:15 PM CDT Temperature 36.6 C (97.9 F) 01/19/2024 3:15 PM CDT Respiratory Rate 20 05/20/2023 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 Oxygen Saturation 99% 01/19/2024 3:15 PM CDT Inhaled Oxygen Concentration - - Weight 76.8 kg (169 lb 6.4 oz) 01/19/2024 3:15 P M CDT Height 162.6 cm (5' 4) 01/19/2024 3:15 PM CDT Body Mass Index 29.08 01/19/2024 3:15 PM CDT Plan of Treatment Health Maintenance Due Date Last Done Comments Cervical Cancer Screening 1989 Depression Screening 1989 Varicella Vaccines (1 of 2 - 13+ 2-dose series) 2002 DTaP/Tdap/Td Vaccine (5 - Tdap) 04/15/2005 04/14/2005, 03/23/1995, 04/12/1993, Additional history exists Regular Well Visit/Exam 18-64 08/23/2007 Pneumococcal vaccine <65 (1 of 2 - PCV) 2008 Influenza Vaccine (Season Ended) 2025 Hepatitis B Screening Completed 07/22/2000 , 02/19/2000, 01/10/2000 Hepatitis C Screening Completed 03/19/2021 HPV Vaccines Aged Out No longer eligi ble based on patient's age to complete this topic Procedures Procedure Name Priority Date/Time Associated Diagnosis Comments HEPATITIS C ANTIBODY Timed 03/19/2021 5:34 AM CDT from Last 3 Months or Most Recently Relevant to Health Maintenance Results * Hepatitis C antibody (03/19/2021 5:34 AM CDT) Hep C Ab Nonreactive Nonreactive SUNG CARDONA Comment:Antibodies to HCV no t detected. Does NOT exclude the possibility of recent exposure to HCV. Blood 03/19/2021 5:34 AM CDT 03/19/2021 5:47 AM CDT Madhu Ventura MD LAB MICRO BIOLOGY - GENERAL ORDERABLES Edited Result - Final SUNG HERNANDEZ [facility] Department [place] [address] from Last 3 Months or Most Recently Relevant to Health Maintenance Insurance AETNA [facility] AETNA [facility] AETNA [facility] Advance Directives For more information, please contact: [phone] * Full Code (Latest Code Status on File) Date Activated Date Inactivated Comments 03/18/2021 7:54 PM 03/21/2021 6:40 PM Care Teams Qa Tester Relationship Specialty Start Date End Date Tera Baeza MD [address] [place] [address] PCP - General Family Medicine 04/13/24
--- OUTSIDE RECORDS SUMMARY | 2024-12-21 01:06 | XMS_ITS | Clinical Summary ---
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 Gender Identity Not on file Sexual Orientation Not on file Plan of Treatment Health Maintenance Due Date Last Done Comments Hepatitis C Virus (HCV) Screening 1989 TdaP Immunization 1989 Hepatitis B Immunization (1 of 3 - 19+ 3-dose series) 2008 Pap Smear 2010 Cervical Cancer Screening (CCS) 08/23/2019 HPV/Cotest 08/23/2019 Influenza Immunization (#1) 2024 SARS-COV-2 Immunization ( season) 2024 Respiratory Syncytial Virus (RSV) Immunization (Adult) (1 - 1-dose 75+ series) 2064 Meningococcal Immunization (ACWY) Aged Out No longer eligible based on patient's age to complete this topic Pneumococcal Immunization Combined Aged Out No longer eligible based on patient's age to complete this topic Rotavirus Immunization Aged Out No lo nger eligible based on patient's age to complete this topic
--- NOTE | 2024-12-21 01:07 | ED.CHESTPAIN ---
HPI - Chest Pain General Chief Complaint: Chest Pain Stated Complaint: chest pain Time Seen by Provider: 12/21/24 01:04 Source: patient Mode of arrival: ambulatory Limitations: no limitations History of Present Illness HPI narrative: patient is a 34-year-old female with chest pain /abdominal pain upper abdomen this evening after eating [employer]. Patient comes to the emergency room for chest pain evaluation. no history of CAD. MD complaint: chest pain Pertinent past history: other ( None) Onset (ago): hour(s) ( 1) Timing of current episode: constant Prior episodes: Yes Onset: during rest Pain location: substernal, epigastric and subxiphoid Pain radiation: abdomen ( upper abdomen) Severity: moderate Pain scale (0-10): 5 Quality: sharp Relieving factors: nothing Exacerbating factors: eating Context: other ( patient has acute onset of some chest pain /abdominal upper abdomen pain after eating [employer] this evening) Associated symptoms: other ( none) Treatment prior to arrival: none Risk Factors Coronary artery disease risk factors: none Thoracic aortic dissection risk factors: none Related Data On Oral Contraceptives: No Home Medications ?Medication ?Instructions ?Recorded ?Confirmed ?Last Taken ?Type divalproex 500 mg tablet,extended 500 mg PO DAILY 01/28/23 01/28/23 Unknown History release 24 hr fluoxetine 60 mg tablet 60 mg PO DAILY 01/28/23 01/28/23 Unknown History spironolactone 50 mg tablet 50 mg PO DAILY 01/28/23 01/28/23 Unknown History Allergies Allergy/AdvReac Type Severity Reaction Status Date / Time No Known Allergies Allergy Verified 12/21/24 01:10 Review of Systems Review of Systems: All systems reviewed & are unremarkable except as noted in HPI and below Constitutional: Constitutional: Reports no additional constitutional complaints Eyes: Eyes: Reports no additional eye complaints ENT: Reports system reviewed and no additional complaints, except as documented Cardiovascular: Cardiovascular: Reports no additional cardiovascular complaints Respiratory: Respiratory: Reports no additional respiratory complaints Gastrointestinal: Gastrointestinal: Reports no additional gastrointestinal complaints Genitourinary: Genitourinary: Reports no additional female genitourinary complaints Musculoskeletal: Musculoskeletal: Reports no additional musculoskeletal complaints Integumentary/Breasts: Skin/Breast: Reports system reviewed and no additional complaints, except as docu Neurologic: Reports system reviewed and no additional complaints, except as documented Psychiatric: Psychiatric: Reports no additional psychiatric complaints Endocrine: Endocrine: Reports no additional endocrine complaints Hematologic/Lymphatic: Hematologic/Lymphatic: Reports no additional hematologic/lymphatic complaints Allergic/Immunologic: Allergic/Immunologic: Reports no additional allergic/immunologic complaints PMFSH Surgical History Surgical History H/O dilation and curettage Social History Social History Smoking packs per day: 1 Smoking cigarettes per day: 20.0 Smoking status: Current every day smoker Tobacco type: cigarettes Alcohol intake: current Substance use: current Substance use type: marijuana Exam Const: General: healthy appearing Nutritional Appearance: well nourished Orientation/consciousness: patient oriented x3 Limitations: no limitations Other: acute pain HENMT: Head: normal to inspection Ears: external ears normal Face/Nose/Sinus: Normal external nose present Eyes: Conjunctivae: conjunctivae normal Pupils: Equal, round and reactive pupils present EOM: EOMs intact bilaterally Neck: Neck: normal visual inspection Chest: Chest palpation & inspection: normal inspection of the chest Resp: Effort & Inspection: normal respiratory effort and not labored Auscultation: clear to auscultation bilaterally and no crackles Cardio: Rate: regular rate Rhythm: regular rhythm Heart sounds: no murmurs GI: Inspection: non-distended GI Palp: Yes Soft to palpation, Yes Tenderness to palpation present (GI) ( epigastric), No Guarding due to palpation present (GI), No Rigid due to palpation, No Hernia present, No Palpable mass present and No Rebound tenderness present Auscultation: normal bowel sounds : General: Yes bladder normal to palpation Back/Spine/Pelvis: Back: no CVA tenderness Skin: General skin exam: normal color Rashes: no rashes Wounds: no wounds Neuro: General: patient oriented x3, moves all extremities and no meningeal signs Cranial nerves: Yes Nystagmus not present Extrem: General: normal to inspection Psych: Mental Status: mental status grossly normal Affect: normal affect Attitude: cooperative Course Vital Signs Vital signs: Vital Signs Temperature 36.6 C 12/21/24 01:03 Pulse Rate 80 12/21/24 01:03 Respiratory Rate 20 12/21/24 01:03 Blood Pressure 121/78 12/21/24 01:03 Pulse Oximetry 99 12/21/24 01:03 Oxygen Delivery Room Air 12/21/24 01:03 Temperature 36.6 C 12/21/24 01:03 Pulse Rate 80 12/21/24 01:03 Respiratory Rate 20 12/21/24 01:03 Blood Pressure 121/78 12/21/24 01:03 Pulse Oximetry 99 12/21/24 01:03 Oxygen Delivery Room Air 12/21/24 01:03 MDM - Chest Pain MDM Narrative Medical decision making narrative: patient is a 34-year-old female with chest pain /abdominal pain over the last hour after eating [employer]. We will start with an EKG and a GI cocktail. patient has resolved symptoms at this time. No further workup needed at this time. ECG Data EKG #1: Attestation: I personally reviewed and interpreted this ECG as follows: ECG completion date: 12/21/24 ECG completion time: 01:14 EKG Interpretation: normal rate, sinus rhythm, no ectopy, non-specific ST changes, normal QRS, normal QT and NL axis Discharge Plan Discharge Clinical Impression: Atypical chest pain, Chest pain due to GERD Patient Disposition: Home Condition: Improved Instructions: Chest Pain (ED), GERD (Gastroesophageal Reflux Disease) (DC) Patient Language: [place] Prescriptions: New pantoprazole [Protonix] 40 mg tablet,delayed release (DR/EC) 40 mg PO DAILY 20 Days Qty: 20 0RF No Action divalproex 500 mg tablet extended release 24 hr 500 mg PO DAILY spironolactone 50 mg tablet 50 mg PO DAILY fluoxetine 60 mg tablet 60 mg PO DAILY sulfamethoxazole-trimethoprim [Bactrim DS] 800-160 mg tablet 1 tablet PO Q12H Qty: 14 0RF naproxen [Naprosyn] 500 mg tablet 500 mg PO BID PRN (Reason: pain) Qty: 14 0RF cyclobenzaprine 10 mg tablet 10 mg PO TID PRN (Reason: muscle spasm) Qty: 20 0RF Follow-up/Referrals: Tera Baeza MD [Primary Care Provider] - Time of Disposition: 01:58
[2024-12-21] MEDS: MAG HYDROX/ALUMINUM HYD/SIMETH 30 ML, PHENobarb/HYOSCY/ATROPINE/SCOP 32.4 MG, LIDOCAINE... PO (01:12)
[2024-12-21 02:20] VITALS: BP 132/72; PULSE 72; RESP 18; O2SAT 99
== END 2024-12-21 02:20 | disposition home or self-care (01) ==
LOC: CHSED 01:22
PROVIDERS: Emergency Provider Emergency Medicine; PCP Family Medicine
DX: K21.9 Gastro-esophageal reflux disease without esophagitis (principal); F17.210 Nicotine dependence, cigarettes, uncomplicated
CPT/HCPCS: 93005; 99284; A9270

== ENCOUNTER 2025-03-22 13:23 | Outpatient (CLI) | payer OTHER, SELFPAY ==
[2025-03-22 13:44] LABS: Hematocrit 42.4 % (35.0-49.0); Hemoglobin 14.9 g/dL (12.0-15.0); Immature Granulocyte Percent A 0.5 % (0.0-0.0); Lymphocytes Absolute Auto 1.19 K/mm3 (1.10-4.50); Mean Corpuscular HGB Conc 35.1 g/dL (32-36); Mean Corpuscular Hemoglobin 31.0 pg (27.0-31.0); Mean Corpuscular Volume 88.3 fL (78.0-102.0); Nucleated Red Blood Cells Absolute Auto 0.00 K/mm3 (0.00-0.00); Nucleated Red Blood Cells Perc 0.0 % (0-0.0); Platelet Count Result 211 K/mm3 (150-420); Red Blood Count 4.80 M/mm3 (4.20-5.40); White Blood Count 5.6 K/mm3 (4.8-10.8)
[2025-03-22 14:06] LABS: Alanine Aminotransferase 17 U/L (6-35); Albumin Level 4.7 g/dL (3.5-5.1); Alkaline Phosphatase 70 U/L (38-126); Anion Gap 8 mmol/L (4-12); Aspartate Amino Transferase 24 U/L (14-36); Bilirubin,Total 0.8 mg/dL (0.2-1.3); Blood Urea Nitrogen 11 mg/dL (7-17); CRP < 0.5 mg/dL (<1.0); Calcium 9.6 mg/dL (8.4-10.2); Carbon Dioxide 26 mmol/L (22-30); Chloride 106 mmol/L (98-107); Cholesterol 261 mg/dL (0-200); Estimated Glomerular Filt Rate > 60; Glucose 98 mg/dL (65-110); HDL Direct 79 mg/dL; Osmolality Calculated 289 mOsm/kg (285-295); Potassium 4.4 mmol/L (3.4-5.0); Sodium 140 mmol/L (137-145); Total Protein 8.6 g/dL (6.3-8.2); Triglycerides 80 mg/dL (<150)
[2025-03-22 14:34] LABS: Thyroid Stimulating Hormone Reflex 2.940 uIU/mL (0.465-4.68)
[2025-03-22 15:09] LABS: Vitamin B12 658.0 pg/mL (239-931)
--- OUTSIDE RECORDS SUMMARY | 2025-03-22 15:28 | XMS_ITS | Clinical Summary ---
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
--- OUTSIDE RECORDS SUMMARY | 2025-03-22 15:28 | XMS_ITS | Clinical Summary ---
Author Organization [facility] Address [address] [place] [address] Care Team Providers Care College Athlete Name Role Phone Yonas Kaur MD Primary Care Provider [phone] Allergies No known active allergies Medications fluoxetine [...] Problem Noted Date Diagnosed Date Term of 08/29/2021 Resolved Problems Problem Noted Date Diagnosed Date Resolved Date Non-Hodgkin's lymphoma 08/14/201908/14 Family History Relation Status Comments Father Alive [...] No 08/29/2021 Social Connection and Isolation Panel Answer Date Recorded In a typical week, how many times do you talk on the phone with family, friends, or neighbors? Once a week 08/30/19 How often do you get togethe r with friends or relatives? Once a week 08/29/2021 How often do you attend up health system or rastafari services? Never 08/29/2021 Do you belong to any clubs o r organizations such as yazidi groups, unions, fraternal or athletic groups, or [...] and heating? Not hard at all 08/29/2021 [facility] - Occupational Stress [...] money to buy more. Never true 08/30/19 Within the past 12 months, t he [...] place to sleep or slept in a custodial (including now)? 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 Gender Identity Female 08/29/2021 2:54 PM CDT [...] Years) (1 of 2 - PCV) 2008 HPV Vaccines (1 - 3-dose SCDM series) 2016 Cervical Cancer Screening Pap with HPV Testing (Age 30 to 64) Every 5 Years 08/23/2019 Cervical Cancer Screening with HPV 08/23/2019 COVID-19 Vaccine ( season) 2025 Influenza Adult (#1) 2025 Hepatitis A Vaccines Aged Out No long er eligible based on patient's age to complete [...] Last Indicated MRSA 09/04/2023 09/04/2023 Insurance [employer] MEDICAID Advance Directives * Full Code (Latest Code Status on File) Date Activated Date Inactivated Comments 08/29/2021 2:44 PM 08/31/2021 12:32 PM * Full Code Date Activated Date Inactivated Comments 04/28/2019 1:25 PM 04/28/2019 5:05 PM Care Teams College Athlete Relationship Specialty Start Date End Date Yonas Kaur MD [address] [place] [id number] PCP - General FAMILY PRACTICE 01/26/19
--- OUTSIDE RECORDS SUMMARY | 2025-03-22 15:28 | XMS_ITS | Clinical Summary ---
Author Organization [facility] Address [address] [place] [address] Care Team Providers Care Pipe Cleaning Machine Operator Name Role Phone Tera Baeza MD Primary [...] CDT Respiratory Rate 20 05/20/2023 4:18 PM MATERIAL CLERK Oxygen Saturation 99% 01/19/2024 3:15 PM CDT [...] <65 (1 of 2 - PCV) 2008 HPV Vaccines (1 - 3-dose SCD M series) 2016 Influenza Vaccine (#1) 2025 Hepatitis B Screening Completed 07/22/2000 , 02/19/2000, 01/10/2000 Hepatitis C Screening Completed 03/19/2021 Procedures Procedure Name Priority Date/Time Associated Diagnosis [...] 5:34 AM CDT 03/19/2021 5:47 AM CDT us Madhu Ventura MD LAB MICRO BIOLOGY - GENERAL ORDERABLES Edited Result - Final SUNG HERNANDEZ [facility] Department [place] [address] from Last 3 Months or Most Recently Relevant to Health Maintenance Insurance AETNA [facility] AETNA [facility] AETNA [facility] Advance Directives For more information, please contact: [phone] * Full Code (Latest Code Status on File) Date Activated Date Inactivated Comments 03/18/2021 7:54 PM 03/21/2021 6:40 PM Care Teams Pipe Cleaning Machine Operator Relationship Specialty Start Date End Date Tera Baeza MD [address] [place] [address] PCP - General Family Medicine 04/13/24
[2025-03-23 18:08] LABS: ANA by IFA Rfx Titer/Pattern Positive (.)
== END 2025-03-22 13:24 | disposition home or self-care (01) ==
LOC: CHSLAB 13:25
PROVIDERS: PCP Family Medicine; Visit Provider Family Medicine
DX: Z86.73 Personal history of transient ischemic attack (TIA), and cerebral infarction without residual deficits (principal); E03.9 Hypothyroidism, unspecified; E53.8 Deficiency of other specified B group vitamins; M32.9 Systemic lupus erythematosus, unspecified
CPT/HCPCS: 36415; 80053; 80061; 82607; 82746; 84443; 85025; 85598; 85610; 85613; 85670; 85730; 86038; 86140; 86146; 86147; 86430

== ENCOUNTER 2025-04-04 08:17 | Outpatient (CLI) | payer OTHER, SELFPAY ==
--- NOTE | ~2025-04-04 | CT_ITS ---
CTA NECK, CTA HEAD Clinical History: Z86.73 - Personal history of transient ischemic attack (T... Comparison: Brain MRI 10/17/2015 TECHNIQUE: Helical images thoracic inlet to vertex 100 mL Omnipaque 350 Coronal, sagittal reformats. Multi planar MIPS CT images acquired with automatic exposure control for dose reduction DLP: 1144 mGy-cm Findings: NASCET Criteria utilized CTA NECK Aortic arch: No aneurysm or dissection. Great vessel origins: No stenosis. CCAs: No stenosis. Cervical ICAs: No stenosis. Vertebral Arteries: Patent. Lung Apices: Clear. Thyroid: Unremarkable. Nodes: No enlarged nodes. Bones: No acute bony abnormality. CTA HEAD: Aneurysms: None. Intracranial ICAs: Patent, unremarkable. ACAs and their distal branches: Patent, unremarkable. A-Comm: Identified. Patent, unremarkable. MCAs and their distal branches: Patent, unremarkable. Basilar artery: Patent, unremarkable. police patrol officer and their distal branches: Patent. Left P1 diminutive and/or congenitally absent; origin P-comm supply. P-Comms: Identified. IMPRESSION: CTA NECK: 1. No acute findings. CTA HEAD: 1. No acute findings. Reviewed, dictated and finalized at location R.
--- OUTSIDE RECORDS SUMMARY | 2025-04-04 08:29 | XMS_ITS | Clinical Summary ---
Author Organization [facility] Address [address] [place] [address] Phone Care Team Providers Care Distribution System Operator Name Role Phone Unavailable Primary Care Provider Unavailabl e Allergies Active Allergy Reactions Criticality Noted Date Comments Penicillins Anaphylaxis 07/06/2017 Social History Tobacco Use Types Packs/Day Years Used Date Smoking Tobacco: Never Assessed Comments Unknown Sex and Gender Information Value Date Recorded Sex Assigned at Not on file Legal Sex Female 1:50 PM ASSEMBLER BODY Gender Identity Not on file Sexual Orientation [...]
--- OUTSIDE RECORDS SUMMARY | 2025-04-04 08:29 | XMS_ITS | Clinical Summary ---
Author Organization [facility] Address [address] [place] [address] Care Team Providers Care Rn Home Health Name Role Phone Yonas Kaur MD Primary Care Provider [phone] Allergies No known active allergies Medications fluoxetine [...] week 08/29/2021 How often do you attend [facility] or latter-day services? Never 08/29/2021 Do you belong to any clubs o r organizations such as druze groups, unions, fraternal or athletic groups, or [...] and heating? Not hard at all 08/29/2021 [facility] - Occupational Stress [...] place to sleep or slept in a [facility] (including now)? 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
--- OUTSIDE RECORDS SUMMARY | 2025-04-04 08:29 | XMS_ITS | Clinical Summary ---
Author Organization [facility] Address [address] [place] [address] Care Team Providers Care Marketing Sales Representative Name Role Phone Tera Baeza MD Primary [...] CDT Respiratory Rate 20 05/20/2023 4:18 PM HOOKMAN Oxygen Saturation 99% 01/19/2024 3:15 PM CDT [...] Edited Result - Final SUNG HERNANDEZ [facility] Department [place] [address] from Last 3 Months or Most Recently Relevant to Health Maintenance Insurance AETNA [facility] AETNA [facility] AETNA [facility] Advance Directives For more information, please contact: [phone] * Full Code (Latest Code Status on File) Date Activated Date Inactivated Comments 03/18/2021 7:54 PM 03/21/2021 6:40 PM Care Teams Marketing Sales Representative Relationship Specialty Start Date End Date Tera Baeza MD [address] [place] [address] PCP - General Family Medicine 04/13/24
== END 2025-04-04 08:18 | disposition home or self-care (01) ==
PROVIDERS: PCP Family Medicine; Visit Provider Family Medicine
DX: Z86.73 Personal history of transient ischemic attack (TIA), and cerebral infarction without residual deficits (principal)
CPT/HCPCS: 70496; 70498; Q9967